=== PATIENT | female | born 1945 | race African-American/Black ===

== ENCOUNTER 2018-03-04 10:48 | Outpatient (CLI) | payer MEDICARE ==
--- NOTE | 2018-03-06 08:51 | MMO ---
BILATERAL MAMMOGRAMS: DATE: 03/04/18 HISTORY: Screening mammography. COMPARISON: 02/23/16 and 02/19/15. FINDINGS: Scattered fibroglandular densities and benign-appearing calcifications. Intramammary lymph nodes are stable. Focal asymmetry deep within the lateral aspect of the right breast is unchanged. No new domin ant mass or suspicious calcifications. The study was evaluated with the assistance of computer-aided detection. IMPRESSION: BIRADS 2: Benign Finding(s) Suggest routine follow-up. POS: CHARO
== END 2018-03-04 10:49 | disposition home or self-care (01) ==
LOC: SCSMAMMO 10:48
PROVIDERS: ATTEND Internal Medicine
DX: Z12.31 Encounter for screening mammogram for malignant neoplasm of breast (principal)
CPT/HCPCS: 77067

== ENCOUNTER 2019-03-12 12:58 | Outpatient (CLI) | payer MEDICARE ==
--- NOTE | 2019-03-12 15:16 | BD ---
Exam: DEXA Bone Densitometry 03/12/19 INDICATION: Postmenopausal osteoporosis screening. Lumbar Spine: BMD (g/cm2) T-SCORE L1 1.079 0.8 L2 1.189 1.5 L3 1.312 2.1 L4 1.219 1.4 L1-L4 1.204 1.4 Femoral Neck: 0.965 1.0 Total Femur: 1.191 2.0 Impression: Bone mineral density of the lumbar spine and femoral neck are within normal range. POS: CHARO
--- NOTE | 2019-03-18 06:43 | MMO ---
Bilateral MAMMO Bilat Screen [facility]. CLINICAL HISTORY: Patient is 73 years old and is seen for screening. The patient has the following family history of breast cancer: sister, at age 50. The patient has a history of gi cancer 2010. VIEWS: The views performed were: bilateral craniocaudal with tomosynthesis and bilateral mediolateral oblique with tomosynthesis. FILMS COMPARED: The present examination has been compared to prior imaging studies performed at [facility] on 01/28/2014, 02/19/2015, 02/23/2016 and 02/28/2017. MAMMOGRAM FINDINGS: There are scattered fibroglandular densities. There are no suspicious masses, suspicious calcifications, or new areas of architectural distortion. IMPRESSION: THERE IS NO MAMMOGRAPHIC EVIDENCE OF MALIGNANCY. A ROUTINE FOLLOW-UP MAMMOGRAM IN 1 YEAR IS RECOMMENDED. THE RESULTS OF THIS EXAM WERE SENT TO THE PATIENT. ACR BI-RADS Category 1 - Negative MAMMOGRAPHY NOTE: 1. A negative mammogram report should not delay a biopsy if a dominant of clinically suspicious mass is present. 2. Approximately 10% to 15% of breast cancers are not detected by mammography. 3. Adenosis and dense breasts may obscure an underlying neoplasm. Reported by: MISA DOCKERY MD Electonically Signed: [id number]
== END 2019-03-12 12:59 | disposition home or self-care (01) ==
LOC: BICMAMMO 12:58
PROVIDERS: ATTEND Internal Medicine
DX: Z12.31 Encounter for screening mammogram for malignant neoplasm of breast (principal); Z13.820 Encounter for screening for osteoporosis; Z78.0 Asymptomatic menopausal state
CPT/HCPCS: 77063; 77067; 77080